=== PATIENT | male | born 1980 | race Caucasian/White ===

== ENCOUNTER → 2021-07-10 | Outpatient (CLI) | payer OTHER ==
--- NOTE | 2021-07-10 09:17 | KCIC ---
Cardiac over read of CT chest without contrast History: Dyslipidemia Technique: With retrospective electrocardiogram gating 2.5 mm thick axial reconstructed noncontrast i mages of the chest at the level of the coronary arteries was performed. Large field of view is available for my review. Findings: There is mild gynecomastia, likely incidental. Impression: No extracardiac pathology. See cardiology report. End impression PQRS Compliance Statement: One or more of the following individualized dose reduction techniques were utilized for this examinat ion: 1. Automated exposure control 2. Adjustment of the mA and/or kV according to patient size 3. Use of iterative reconstruction technique Electronically signed by: David Smith III, MD (07/10/2021 9:14 AM) [facility]
== END ==
LOC: KCIC CT 08:20
PROVIDERS: ATTEND Internal Medicine Cardiovascular Disease
DX: E78.5 Hyperlipidemia, unspecified (principal); N62 Hypertrophy of breast
CPT/HCPCS: 75571